=== PATIENT | male | born 1950 | race Caucasian/White ===

== ENCOUNTER → 2016-11-04 | Outpatient (CLI) | payer MEDICARE, OTHER ==
[~2016-11-04] VITALS: Ht 167.6 cm; Wt 133.8 kg
[~2016-11-04] MED LIST: ALBU17AE23 IH; ALUPENT IH; AMLO10TA2 PO; AMLO10TA82 PO; ARIP10TA2 PO; ASPI-586 PO; BENA20TA2 PO; BNZ20T PO; CATHETER FLUSH 10 ML SYR IV PRN; ESCI20TA2 PO; ESCI20TA45 PO; FINA5TAB6 PO; HYDR-3583 PO; LOVA20TA2 PO; METO200T2 PO; METO200T32 PO; PRAV10TA PO; REGADENOSON 0.4 MG/5 ML SYR (LEXISCAN) IV ONE
--- OUTSIDE RECORDS SUMMARY | 2016-11-04 07:24 | XMS REPORT | Continuity of Care Document ---
Author Author [facility] Address Unknown Phone Unavailable Allergies Medications Problems Date Dx Coded Attending Type Code Diagnosis Diagnosed By 12/27/2008 TARIQ LESLIE DO 296.90 MO MOOD DIS NOS 12/27/2008 TARIQ LESLIE DO 296.90 MO MOOD DIS NOS 12/27/2008 TRISH BETHEA MD 296.90 MO MOOD DIS NOS 12/27/2008 RENATA PARSONS APRN 296.90 MO MOOD DIS NOS 01/10/2009 TARIQ LESLIE DO 296.30 MO DEPRESSIVE RECURRENT UNSPECIFIED 01/10/2009 TARIQ LESLIE DO 401.9 UNSPECIFIED ESSENTIAL HYPERTENSION 01/10/2009 TARIQ LESLIE DO 296.30 MO DEPRESSIVE RECURRENT UNSPECIFIED 01/10/2009 TARIQ LESLIE DO 401.9 UNSPECIFIED ESSENTIAL HYPERTENSION 01/10/2009 TRISH BETHEA MD 296.30 MO DEPRESSIVE RECURRENT UNSPECIFIED 01/10/2009 TRISH BETHEA MD 401.9 UNSPECIFIED ESSENTIAL HYPERTENSION 01/10/2009 RENATA PRASONS APRN 296.30 MO DEPRESSIVE RECURRENT UNSPECIFIED 01/10/2009 RENATA PARSONS APRN 401.9 UNSPECIFIED ESSENTIAL HYPERTENSION 01/12/2009 TARIQ LESLIE DO 296.33 MO 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 01/12/2009 TARIQ LESLIE DO 296.33 MO 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 01/12/2009 TRISH BETHEA MD 296.33 MO 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 01/12/2009 RENATA PARSONS APRN 296.33 MO 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 01/15/2009 TARIQ LESLIE DO 307.47 SI DYSSOMNIA NOS 01/15/2009 TARIQ LESLIE DO 307.47 SI DYSSOMNIA NOS 01/15/2009 TRISH BETHEA MD 307.47 SI DYSSOMNIA NOS 01/15/2009 RENATA PARSONS APRN 307.47 SI DYSSOMNIA NOS 02/12/2009 TARIQ LESLIE DO 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 02/12/2009 TARIQ LESLIE DO 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 02/12/2009 TRISH BETHEA MD 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 02/12/2009 RENATA PARSONS APRN 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 04/11/2009 TARIQ LESLIE DO 296.32 MO DEPRESSIVE RECURRENT MODERATE 04/11/2009 TARIQ LESLIE DO 296.32 MO DEPRESSIVE RECURRENT MODERATE 04/11/2009 TRISH BETHEA MD 296.32 MO DEPRESSIVE RECURRENT MODERATE 04/11/2009 RENATA PARSONS APRN 296.32 MO DEPRESSIVE RECURRENT MODERATE 05/10/2009 TARIQ LESLIE DO 296.35 MO DEPRESSIVE RECURRENT IN PART OR UNSPECIFIED REMISSION 05/10/2009 TARIQ LESLIE DO 300.00 AN ANXIETY UNSPEC 05/10/2009 TARIQ LESLIE DO 296.35 MO DEPRESSIVE RECURRENT IN PART OR UNSPECIFIED REMISSION 05/10/2009 TARIQ LESLIE DO 300.00 AN ANXIETY UNSPEC 05/10/2009 TRISH BETHEA MD 296.35 MO DEPRESSIVE RECURRENT IN PART OR UNSPECIFIED REMISSION 05/10/2009 TRISH BETHEA MD 300.00 AN ANXIETY UNSPEC 05/10/2009 RENATA PARSONS APRN 296.35 MO DEPRESSIVE RECURRENT IN PART OR UNSPECIFIED REMISSION 05/10/2009 RENATA PARSONS APRN 300.00 AN ANXIETY UNSPEC 11/16/2009 TARIQ LESLIE DO V58.69 MEDICATION HIGH RISK 11/16/2009 TARIQ LESLIE DO V58.69 MEDICATION HIGH RISK 11/16/2009 TRISH BETHEA MD V58.69 MEDICATION HIGH RISK 11/16/2009 RENATA PARSONS APRN V58.69 MEDICATION HIGH RISK 11/29/2013 TRISH BETHEA MD 296.36 MO DEPRESSIVE RECURRENT IN FULL REMISSION 11/29/2013 RENATA PARSONS APRN 296.36 MO DEPRESSIVE RECURRENT IN FULL REMISSION Procedures Results Encounters ACCT No. Visit Date/Time Discharge Status Pt. Type Provider Facility Loc./Unit Complaint [id number] 11/29/2013 12:42:00 11/29/2013 23: 59:59 CLS Outpatient TRISH BETHEA MD [id number] 11/29/2013 12:42:00 11/29/2013 23: 59:59 CLS Outpatient RENATA PARSONS APRN [id number] 05/23/2013 14:51:00 05/23/2013 23: 59:59 CLS Outpatient TARIQ LESLIE DO [id number] 10/26/2012 14:51:00 10/26/2012 23: 59:59 [facility] Outpatient TARIQ LESLIE DO
[2016-11-04 09:11] VITALS: BP 158/93
--- NOTE | 2016-11-06 09:38 | STRESS TEST ---
PROCEDURE PHYSICIAN: OPAL MARIA DATE OF PROCEDURE: 11/04/2016 RESTING AND POST REGADENOSON TECHNETIUM 99M TETROFOSMIN SPECT CT IMAGING: Baseline images were carried out after injection of 10.6 mCi of technetium 99m tetrofosmin. This was followed by 0.4 mg of regadenoson and 30.8 mCi of technetium 99m tetrofosmin for stress imaging. The electrocardiogram showed sinus rhythm with right bundle branch block. During the study, there were brief episodes of Wenckebach AV block, asymptomatic. He received 0.4 mg of regadenoson and 38.8 mCi of technetium 99m tetrofosmin for stress imaging. Overall, he tolerated the procedure well. Review of images at rest and following stress, indicate a small apical perfusion defect consistent with a small amount of apical ischemia. Gated images show normal global left ventricular systolic function with normal regional wall motion. Left ventricular ejection fraction is calculated to be 60%. Left ventricular end-diastolic volume is 129 mL. CONCLUSION: 1. This study indicates a small amount of apical ischemia. 2. Normal regional wall motion. 3. Normal global left ventricular systolic function with a calculated ejection fraction of 60%. 4. Mild cardiomegaly. 5. Brief episodes of asymptomatic second degree, Mobitz I AV block during the study. Job ID: [id number] Dictated Date: 11/05/2016 17:15:52 Batch Operator Date: 11/06/2016 09:32:52 / [email or web address]
== END ==
LOC: CARD 07:21
PROVIDERS: ATTEND Nurse Practitioner Family
DX: R94.31 Abnormal electrocardiogram [ECG] [EKG] (principal); I10 Essential (primary) hypertension; E66.9 Obesity, unspecified
CPT/HCPCS: 78452; 93017

== ENCOUNTER 2016-11-05 05:56 | Outpatient (CLI) | payer MEDICARE, OTHER ==
[~2016-11-05] VITALS: Ht 167.6 cm; Wt 133.8 kg
[~2016-11-05 05:56] MED LIST changes: -AMLO10TA2 PO; -ASPI-586 PO; -BENA20TA2 PO; -CATHETER FLUSH 10 ML SYR IV PRN; -ESCI20TA45 PO; -LOVA20TA2 PO; -METO200T32 PO; -PRAV10TA PO; -REGADENOSON 0.4 MG/5 ML SYR (LEXISCAN) IV ONE
--- OUTSIDE RECORDS SUMMARY | 2016-11-05 05:59 | XMS REPORT | Continuity of Care Document ---
Author Author [facility] Address Unknown Phone Unavailable Allergies Medications [...] MD 401.9 UNSPECIFIED ESSENTIAL HYPERTENSION 01/10/2009 RENATA PARSONS APRN 296.30 MO DEPRESSIVE RECURRENT UNSPECIFIED 01/10/2009 [...] Status Pt. Type Provider Facility Loc./Unit Complaint [id number] 11/29/2013 12:42:00 11/29/2013 23: 59:59 CLS Outpatient TRISH BETHEA MD [id number] 11/29/2013 12:42:00 11/29/2013 23: 59:59 CLS Outpatient RENATA PARSONS APRN [id number] 05/23/2013 14:51:00 05/23/2013 23: 59:59 CLS Outpatient TARIQ LESLIE DO [id number] 10/26/2012 14:51:00 10/26/2012 23: 59:59 [facility] Outpatient TARIQ LESLIE DO
[2016-11-05] MEDS ORDERED: LOVA20TA2 PO (13:25)
== END 2016-11-05 13:29 ==
LOC: PREOP 05:56
PROVIDERS: ATTEND Internal Medicine
DX: Z01.818 Encounter for other preprocedural examination (principal); Z12.11 Encounter for screening for malignant neoplasm of colon

== ENCOUNTER 2016-11-07 06:51 | Day surgery (SDC) | payer OTHER ==
[~2016-11-07] VITALS: Ht 167.6 cm; Wt 133.8 kg
[~2016-11-07 06:51] MED LIST changes: +LOVA20TA2 PO
--- OUTSIDE RECORDS SUMMARY | 2016-11-07 06:54 | XMS REPORT | Continuity of Care Document ---
Author Author [facility] [place] Address Unknown Phone Unavailable Allergies Medications Problems [...] Status Pt. Type Provider Facility Loc./Unit Complaint [id number] 11/29/2013 12:42:00 11/29/2013 23: 59:59 CLS Outpatient TRISH BETHEA MD [id number] 11/29/2013 12:42:00 11/29/2013 23: 59:59 CLS Outpatient RENATA PARSONS APRN [id number] 05/23/2013 14:51:00 05/23/2013 23: 59:59 CLS Outpatient TARIQ LESLIE DO [id number] 10/26/2012 14:51:00 10/26/2012 23: 59:59 [facility] Outpatient TARIQ LESLIE DO
--- OUTSIDE RECORDS SUMMARY | 2016-11-07 06:55 | XMS REPORT | Continuity of Care Document ---
Author Author [facility] Address Unknown Phone Unavailable Allergies Medications [...] Status Pt. Type Provider Facility Loc./Unit Complaint [id number] 11/29/2013 12:42:00 11/29/2013 23: 59:59 CLS Outpatient TRISH BETHEA MD [id number] 11/29/2013 12:42:00 11/29/2013 23: 59:59 CLS Outpatient RENATA PARSONS APRN [id number] 05/23/2013 14:51:00 05/23/2013 23: 59:59 CLS Outpatient TARIQ LESLIE DO [id number] 10/26/2012 14:51:00 10/26/2012 23: 59:59 [facility] Outpatient TARIQ LESLIE DO
[2016-11-07] MEDS ORDERED: 1/2 NS IV SOLUTION 1,000 ML IV STA (07:01)
[2016-11-07] MEDS ORDERED: 1/2 NS IV SOLUTION 1,000 ML IV ONE (07:06)
--- NOTE | 2016-11-07 07:08 | HISTORY AND PHYSICAL ---
DATE OF ADMISSION: 11/07/2016 DICTATING PHYSICIAN: Dr. Mead COLONOSCOPY HISTORY AND PHYSICIAN: Mr. Antonio is a 66-year-old white male referred by Dr. Jones for his first screening colonoscopy. Mr. Antonio reports no known family history for colon cancer. He denies any personal history of bright red blood per rectum or melena. He denies any bowel habit change. PAST MEDICAL HISTORY: Significant for: 1. Hypertension. 2. Hyperlipidemia. 3. No known history of heart with known history of coronary artery disease. 4. 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 PAST SURGICAL HISTORY: Significant for: 1. Ventral hernia repair in [address] Johnson. 2. He does have a past history of kidney stones, last recurrence in 2009. SOCIAL HISTORY: He is a retired schoolteacher with no past smoking history and no significant past drinking history. MEDICATIONS: Include: 1. Amlodipine 10 mg daily. 2. Aripiprazole 5 mg daily. 3. Benazepril 20 mg daily. 4. Citalopram 20 mg daily. 5. Finasteride 5 mg daily. 6. Hydrocortisone topical cream 2.5% p.r.n. itching. 7. Ketoconazole 2% shampoo p.r.n. 8. Lovastatin 40 mg daily. 9. Metoprolol succinate ER 200 mg daily. FAMILY HISTORY: Father at age of 56 secondary to hemorrhagic CVA. Mother at the age of 44, secondary to ovarian cancer. PHYSICAL EXAMINATION: Reveals an overweight white male, appears to be in no acute distress. VITAL SIGNS: Blood pressure was 142/84. Weight was 301.6 pounds. HEENT EXAMINATION: Unremarkable. He is a Mallampati class IV oropharyngeal configuration. CHEST: Clear. CV: Revealed a regular rate and rhythm without murmur, S3 or S4. ABDOMEN: Soft, supple without masses, organomegaly or shortness. EXTREMITIES: Reveal no cyanosis, clubbing, or edema. ASSESSMENT: The patient was set-up for screening colonoscopy on 11/07. Prep instructions with split dose Colyte were given and questions were answered. I thank you for the referral of this pleasant gentleman. Sincerely, Job ID: [id number] Dictated Date: 10/30/2016 20:51:00 Naval Gunfire Spotter Date: 10/31/2016 08:34:53/katelyn
--- NOTE | 2016-11-07 07:09 | Pre-Op Note & Conscious Sedat ---
Pre-Operative Progress Note H&P Reviewed The H&P was reviewed, patient examined and no changes noted. Date H&P Reviewed: Nov 07, 2016 Time H&P Reviewed: 07:08 Conscious Sedation Pre-Proced ASA Class: 2 Airway Mallampati Classification: ([place] appropriate class) I. II. III, IV Lungs Heart ASA score ASA 1: a normal healthy patient ASA 2: a patient with a mild systemic disease (mid diabetes, controlled hypertension, obesity ASA 3: a patient with a severe systemic disease that limits activity (angina , COPD, prior Myocardial infarction) ASA 4: a patient with an incapacitating disease that is a constant threat to life (CHF, renal failure) ASA 5: a moribund patient not expected to survive 24 hrs. (ruptured aneurysm) ASA 6: a declared brain patient whose organs are being harvested. For emergent operations, add the letter E after the classification Grade 4 Sedation Plan: Analgesia, Amnesia, Plan communicated to team members, Discussed options with patient/fam, Discussed risks with patient/fam Note The patient is an appropriate candidate to undergo the planned procedure, sedation, and anesthesia. The patient immediately re-assessed prior to indication. CHI PUTNAM MD Nov 07, 2016 07:09
[2016-11-07] MEDS ORDERED: FLUMAZENIL (ROMAZICON) 0.1 MG/ML 5 ML VIAL INJ PRN (07:15)
[2016-11-07] MEDS ORDERED: MIDAZOLAM 2 MG/2 ML (VERSED) VIAL IVP PRN (07:15)
[2016-11-07] MEDS ORDERED: NALOXONE 0.4 MG/ML 1 ML (NARCAN) VIAL IVP PRN (07:15)
[2016-11-07] MEDS ORDERED: LIDOCAINE JELLY 2% (XYLOCAINE) 5 ML TUBE MM PRN (07:15)
[2016-11-07 07:23] VITALS: BP 150/88
[2016-11-07] MEDS ORDERED: MIDAZOLAM 2 MG/2 ML (VERSED) VIAL ONE ×2 (07:54)
[2016-11-07] MEDS ORDERED: LIDOCAINE JELLY 2% (XYLOCAINE) 5 ML TUBE ONE (07:55)
[2016-11-07] MEDS ORDERED: fentaNYL INJECTION 100 MCG/2 ML AMP ONE (07:55)
[2016-11-07] MEDS: fentaNYL INJECTION 100 MCG/2 ML AMP IVP PRN ×2 (08:00→08:14)
[2016-11-07 08:45] VITALS: BP 132/67
[2016-11-07 09:10] VITALS: BP 141/63
[2016-11-07 09:15] VITALS: BP 141/63
--- NOTE | 2016-11-07 19:26 | PROCEDURE REPORT ---
PROCEDURE PHYSICIAN: CHI PUTNAM DATE OF PROCEDURE: 11/07/2016 SCREENING COLONOSCOPY: INDICATION FOR THE PROCEDURE: Screening colonoscopy. PROCEDURE: The patient was placed in the left lateral decubitus position. Prior to undergoing colonoscopy, digital rectal evaluation was performed. Anal sphincter tone was normal. The perianal reflex was intact. The prostate is severely enlarged but anodular and nontender to digital inspection. No other abnormalities were noted to digital inspection of the anal canal or distal rectal vault. The colonoscope was then inserted into the rectum and under direct visualization advanced to the cecum. The cecum was identified by identification of the ileocecal valve and cecal strap, as well as appendiceal orifice. Photographic documentation was obtained. Careful inspection was made as the colonoscope was withdrawn. The patient tolerated the procedure well. FINDINGS: There was no evidence for internal or external hemorrhoids and the rectum was unremarkable. There was a little bit of deformity secondary to severe prosthetic enlargement. The quality of the prep was good however and there was no evidence for obstruction. The rectum was otherwise unremarkable. Present in the distal sigmoid colon was a diminutive 4 mm polyp that was photographed, biopsied and ablated, with no subsequent blood loss. The remainder of the sigmoid colon was unremarkable. There is no evidence for colonic dilatation. The descending colon, splenic flexure, transverse colon, hepatic flexure, ascending colon and cecum were unremarkable. ASSESSMENT: There is severe enlargement of the prostate, which was otherwise uniform to digital inspection without evidence for nodularity. One diminutive polyp with benign features measuring roughly 3 x 4 mm in size was removed via hot forceps with no blood loss from the distal sigmoid colon. This was an otherwise normal colonoscopy to the cecum. As long as there are no surprises on histopathology report, we will advocate consideration for repeat screening colonoscopy in 10 years as long as there continues to be no family history for colon cancer. I thank you for the referral of this pleasant gentleman. Sincerely, Job ID: [id number] Dictated Date: 11/07/2016 13:24:44 Computer Systems Technician Date: 11/07/2016 19:21:15 / [email or web address]
== END 2016-11-07 09:15 | disposition home or self-care (01) ==
LOC: ENDO 06:51
PROVIDERS: ATTEND Internal Medicine
DX: Z12.11 Encounter for screening for malignant neoplasm of colon (principal); K63.5 Polyp of colon; N40.0 Benign prostatic hyperplasia without lower urinary tract symptoms
CPT/HCPCS: 88305

== ENCOUNTER 2016-11-25 07:04 | Day surgery (SDC) | payer OTHER ==
[~2016-11-25] VITALS: Ht 167.6 cm; Wt 134.5 kg
[2016-11-25] VITALS (8 sets, daily range): BP systolic 128–172; BP diastolic 70–94
[2016-11-25] MEDS ORDERED: NS IV 1000 ML 1,000 ML ONE (07:14)
[2016-11-25] MEDS ORDERED: LIDOCAINE 1% INJ 20 ML (XYLOCAINE) VIAL ONE (07:14)
[2016-11-25] MEDS ORDERED: HEParin (CATH LAB) 2,000 ML IV ONE (07:14)
[2016-11-25] MEDS ORDERED: NS IV 1000 ML 1,000 ML IV SCH (07:30)
[2016-11-25] MEDS ORDERED: ASPI-586 PO (07:39)
[2016-11-25] MEDS ORDERED: METO200T32 PO (07:39)
[2016-11-25] MEDS ORDERED: BENA20TA2 PO (07:39)
[2016-11-25] MEDS ORDERED: ESCI20TA45 PO (07:39)
[2016-11-25] MEDS ORDERED: AMLO10TA2 PO (07:39)
[2016-11-25 07:42] LABS: MEAN PLATELET VOLUME 11.1 FL (7.4-10.4); RED BLOOD COUNT 5.52 10^6/uL (4.35-5.85); RED CELL DISTRIBUTION WIDTH 13.9 % (10.0-14.5); WHITE BLOOD COUNT 12.4 10^3/uL (4.3-11.0)
[2016-11-25 07:52] LABS: INR 1.1 (0.8-1.4)
[2016-11-25 07:59] LABS: ALANINE AMINOTRANSFERASE 17 U/L (0-55); ALBUMIN 4.2 G/DL (3.2-4.5); ANION GAP 12 MMOL/L (5-14); ASPARTATE AMINO TRANSFERASE 18 U/L (5-34); BILIRUBIN,TOTAL 0.7 MG/DL (0.1-1.0); BLOOD UREA NITROGEN 15 MG/DL (7-18); BUN/CREATININE RATIO 15; CALCIUM 9.4 MG/DL (8.5-10.1); CARBON DIOXIDE 25 MMOL/L (21-32); CHLORIDE 104 MMOL/L (98-107); CHOLESTEROL 171 MG/DL (< 200); CREATININE SERUM 0.99 MG/DL (0.60-1.30); DIRECT LDL 115 MG/DL (1-129); GFR ESTIMATED > 60; GLUCOSE 148 MG/DL (70-105); POTASSIUM 3.7 MMOL/L (3.6-5.0); SODIUM 141 MMOL/L (135-145); TOTAL PROTEIN 7.8 G/DL (6.4-8.2); TRIGLYCERIDES 143 MG/DL (<150); VLDL CHOLESTEROL 29 MG/DL (5-40)
[2016-11-25] MEDS ORDERED: FLU TRIvalent (5 YOA+) 2016-17 (AFLURIA) 0.5 ML IM ONE (08:00)
[2016-11-25] MEDS ORDERED: fentaNYL INJECTION 100 MCG/2 ML AMP ONE (08:11)
[2016-11-25] MEDS ORDERED: diphenhydrAMINE 50 MG/ML INJ (BENADRYL) ONE (08:11)
[2016-11-25] MEDS ORDERED: MIDAZOLAM 5 MG/5 ML (VERSED) VIAL ONE (08:11)
[2016-11-25] MEDS: NS IV 1000 ML 1,000 ML IV SCH (10:17)
--- NOTE | 2016-11-25 10:17 | Cardiac Procedure Note-CS/ASA ---
Pre-Procedure Note Pre-Op Procedure Note H&P Reviewed The H&P was reviewed, patient examined and no changes noted. Date H&P Reviewed: Nov 25, 2016 Time H&P Reviewed: 09:00 Conscious Sedation Pre-Proced Time Reviewed: 09:00 ASA Class: 2 Airway Mallampati Classification: ([place] appropriate class) I. II. III, IV Lungs Heart ASA score ASA 1: a normal healthy patient ASA 2: a patient with a mild systemic disease (mid diabetes, controlled hypertension, obesity ASA 3: a patient with a severe systemic disease that limits activity (angina , COPD, prior Myocardial infarction) ASA 4: a patient with an incapacitating disease that is a constant threat to life (CHF, renal failure) ASA 5: a moribund patient not expected to survive 24 hrs. (ruptured aneurysm) ASA 6: a declared brain patient whose organs are being harvested. For emergent operations, add the letter E after the classification Grade 3 Sedation Plan: Analgesia, Amnesia, Plan communicated to team members, Discussed options with patient/fam, Discussed risks with patient/fam Note The patient is an appropriate candidate to undergo the planned procedure, sedation, and anesthesia. The patient immediately re-assessed prior to indication. OPAL MARIA MD FACP FAC CCDS Nov 25, 2016 10:17
[2016-11-25] MEDS ORDERED: ACETAMINOPHEN 325 MG TABLET/CAPLET (TYLENOL) PO PRN (10:30)
[2016-11-25] MEDS ORDERED: PATIENT MAY USE OWN MEDS, ALL PO SCH (10:30)
--- NOTE | 2016-11-25 12:59 | CARDIAC CATHETERIZATION ---
PROCEDURE PHYSICIAN: OPAL MARIA DATE OF PROCEDURE: 11/25/2016 PRIMARY PHYSICIAN: Dr. Jones. Bobo Antonio is a 66-year-old gentleman with right bundle branch block and second-degree Mobitz I AV block who recently had a stress test that showed apical ischemia. Cardiac catheterization was carried out today after having obtained an informed consent. PROCEDURE: She was brought to the cardiac catheterization laboratory in a fasting state. The right groin was prepared and draped in usual sterile fashion. 1% lidocaine was used for local anesthesia. Modified Seldinger technique was used to advance a 5-Omani sheath in right femoral artery. 5-Omani JL4 catheter was used for left coronary angiography. A 5-Omani JR 4 for right coronary angiography. A 5-Omani pigtail catheter for left heart catheterization, left ventricular angiography. Shortly following left heart catheterization, he developed complete heart block. The pigtail catheter was removed and we proceeded with a temporary pacemaker insertion. TEMPORARY PACEMAKER INSERTION: We used a 7-Omani sheath in to access the right femoral vein and were able to advance a temporary pacemaker wire the tip of which was placed at the right ventricular apex and the lead was attached to an external temporary pacemaker. Good capture and sensing thresholds were obtained. He tolerated the procedure well. LEFT VENTRICULAR ANGIOGRAPHY: Left ventricular angiography was carried out in the right anterior oblique projection. Global left ventricular systolic function was well preserved. Left ventricular ejection fraction was 55 to 60%. No distinct regional wall motion abnormalities are seen on this study. There did not appear to be significant mitral regurgitation on this study. CORONARY ANGIOGRAPHY: The left main coronary angiography and left anterior descending artery, right coronary all exhibit no more than minor coronary plaques. The right coronary artery is dominant. CONCLUSION: 1. Angiographically minor coronary artery disease. 2. Well preserved global left ventricular systolic function and ejection fraction 55%. 3. No significant mitral regurgitation. 4. Transient complete heart block following left ventricular angiography in this gentleman with chronic permanent right bundle-branch block. This necessitated temporary pacemaker insertion. DISCUSSION AND RECOMMENDATIONS: Risk factor modification has been reviewed. Conservative approach and risk factor modification is recommended for mild coronary artery disease. For rhythm issues, we have consulted the electrophysiology service (Dr. Price). ADDENDUM: Following completion of the procedure, he was exhibiting his normal heart rhythm without any dependence on pacemaker. Therefore, the temporary pacemaker wire was removed prior to transfer to the floor. Job ID: [id number] Dictated Date: 11/25/2016 10:15:24 Sharepoint Administrator Date: 11/25/2016 12:44:42 / [place]ina
--- NOTE | 2016-11-25 13:44 | Electrophysiology Consultation ---
HPI-Cardiology Cardiology Consultation: Date of Consultation 11/25/16 Date of Admission [facility] Phys[facility] Jas Jones MD Consulting Physician Edliberto SALAS MD HPI: Chief Complaint: Transient complete heart block This is a 66 year old male with history of hypertension. He was found to have right bundle branch block on his EKG. Pharmacological nuclear stress tests was performed which showed Mobitz type I AV block and possibility of ischemic heart disease. Coronary angiography was performed this morning by Dr. Diane Cherry. During left heart catheterization the patient developed complete heart block and required temporary pacing. Subsequently the patient converted to normal sinus rhythm with 1:1 AV conduction. The patient denies any previous symptoms including symptoms of dizziness, lightheadedness, near syncope, syncope. Review of Systems-Cardiology Review of Systems Constitutional: No As described under HPI, No no symptoms reported, No chills, No fever, No lightheadedness, No malaise, No tiredness, No weight loss, No weight gain, No other Eyes: No As described under HPI, No no symptoms reported, No blindness, No blurred vision, No contact lenses, No drainage, No decreased acuity, No foreign body sensation, No glasses, No inflammation, No pain, No photophobia, No previous injury, No shadows, No tunnel vision, No other, No vision change Ears/Nose/Throat: No As described under HPI, No no symptoms reported, No chronic hearing loss, No epistaxis, No ear discharge, No ear pain, No loose teeth, No mouth pain, No mouth swelling, No nasal drainage, No nose pain, No recent hearing loss, No throat pain, No throat swelling, No ulcerations, No other Respiratory: No no symptoms reported, No As described under HPI, No cough, No orthopnea, No shortness of breath, No SOB with excertion, No SOB at rest, No stridor, No wheezing, No other Cardiovascular: No no symptoms reported, No As described under HPI, No chest pain, No edema, No irregular heart rate, No lightheadedness, No palpitations, No syncope, No other Gastrointestinal: No no symptoms reported, No As described under HPI, No abdomen distended, No abdominal pain, No blood streaked bowels, No constipation , No diarrhea, No difficulty swallowing, No nausea, No poor appetite, No poor fluid intake, No rectal bleeding, No vomiting, No other, No nausea/vomiting/ diarrhea, No stool coloration changes Genitourinary: No no symptoms reported, No As described under HPI, No burning, No dysuria, No discharge, No frequency, No flank pain, No hematuria, No incontinence, No pain, No urgency, No other, No urine frequency changes, No urine coloration changes Musculoskeletal: No no symptoms reported, No As describe under HPI, No back pain, No gout, No joint pain, No joint swelling, No muscle pain, No muscle stiffness, No neck pain, No other Skin: No no symptoms reported, No As described under HPI, No change in color, No change in hair/nails, No dryness, No lesions, No lumps, No rash, No other, No skin related problems, No ulcerations, No rash on exposed areas, No ulcerations on exposed areas Psychiatric/Neurological: No As described under HPI, No anxiety, No depression , No emotional problems, No focal weakness, No headache, No no symptoms reported , No numbness, No other, No pre-existing deficit, No seizure, No syncope, No tingling, No tremors, No weakness MKD-[id number]-Aqoeyd Hx Patient Social History Smoking Status: Never a Smoker Recent Foreign Travel: No Recent Infectious Disease Expo: No Past Medical History PMH As described under Assessment. Allergies and Home Medications Allergies Coded Allergies: No Known Drug Allergies (Unverified , 11/05/16) Home Medications Amlodipine Besylate 10 Mg Tablet, 10 MG PO DAILY, (Reported) Aripiprazole 10 Mg Tablet, 5 MG PO DAILY, (Reported) Aspirin 81 Mg Tablet.dr, 81 MG PO DAILY, (Reported) Benazepril HCl 20 Mg Tablet, 20 MG PO DAILY, (Reported) Escitalopram Oxalate 20 Mg Tablet, 20 MG PO DAILY, (Reported) Finasteride 5 Mg Tablet, 5 MG PO DAILY, (Reported) Lovastatin 20 Mg Tablet, 20 MG PO DAILY, (Reported) Metoprolol Succinate 200 Mg Tab.er.24h, 200 MG PO DAILY, (Reported) Physical Exam-Cardiology Physical Exam Vital Signs/I&O Vital Sign - Last 12Hours 11/25/16 11/25/16 07:26 09:51 Temp 100.4 Pulse 45 85 Resp 16 B/P (MAP) 172/93 Pulse Ox 94 O2 Delivery Room Air Capillary Refill : Less Than 3 Seconds Constitutional: No appears stated age, No AAO x 3, No apparent distress, No PERRL, No well-developed, No well-nourished, No other HEENT: No PERRL, No normal ENT inspection, No TMs normal, No pharynx normal, No scleral icterus (R), No scleral icterus (L), No pale conjunctivae (R), No pale conjunctivae (L), No photophobia, No TM abnormal (R), No TM abnormal (L), No pharyngeal erythema, No tonsillar exudate, No other, No discharge, No EOMI, No hearing is well preserved, No hard of hearing, No oral hygience is good, No ulceration, No xanthelasmas are seen Neck: No non-tender, No full range of motion, No supple, No normal inspection, No carotid bruit, No limited range of motion, No lymphadenopathy (R), No lymphadenopathy (L), No tender lateral, No tender midline, No thyromegaly, No other, No carotid pulses are 2 + bilaterally, No with good upstrokes Respiratory: No accessory muscle use, No respiratory distress, No chest tender , No chest expansion is symmetric, No chest is bilaterally symmetric, No lungs clear to percussion, No lungs clear to auscultation, No crackles, No rhonchi, No rales, No stridor, No wheezing, No pleural rub, No other Cardiovascular: No regular rate-rhythm, No irregularly irregular, No extra beats, No parasternal heave is noted, No JVD, No edema, No bradycardia, No tachycardia, No point of maximal impulse, No cardiac thrills are palpable, No S1 and S2, No gallop/S3, No gallop/S4, No diastolic murmur, No systolic murmur, No friction rub, No click, No other Gastrointestinal: No tender, No soft, No round, No distended, No pulsatile mass , No organomegaly, No guarding, No rebound, No tenderness, No hernia, No mass, No audible bowel sounds, No abnormal bowel sounds, No abdominal bruits, No spleenomegaly, No other Rectal: deferred Extremities: No normal range of motion, No non-tender, No normal inspection, No pedal edema, No calf tenderness, No normal capillary refill, No pelvis stable , No calf tenderness, No inflammation, No pedal edema, No slow capillary refill , No swelling, No other, No abrasion, No clubbing, No cyanosis, No ecchymosis, No laceration, No no lower extremity edema bilateral, No significant edema, No tenderness, No wound Neurologic/Psychiatric: No washer and capper machine operator II-XII nml as tested, No no motor/sensory deficits, No alert, No normal mood/affect, No oriented x 3, No abnormal cerebellar tests, No abnormal washer and capper machine operator II-XII, No abnormal gait, No aphasia, No EOM palsy, No facial droop, No motor weakness, No sensory deficit, No depressed affect, No disoriented x 3, No other, No grossly intact, No power is 5/5 both on sides Skin: No normal color, No warm/dry, No cyanosis, No cool, No diaphoresis, No damp, No ecchymosis, No jaundice, No mottled, No pallor, No rash, No tattoos/ piercings, No ulcerations, No rash on exposed areas, No ulcerations on exposed areas, No other Data Review Labs Laboratory Tests 11/25/16 07:34: White Blood Count 12.4H, Red Blood Count 5.52, Hemoglobin 16.9, Hematocrit 51, Mean Corpuscular Volume 92, Mean Corpuscular Hemoglobin 31, Mean Corpuscular Hemoglobin Concent 34, Red Cell Distribution Width 13.9, Platelet Count 258, Mean Platelet Volume 11.1H, Prothrombin Time 14.0, INR Comment 1.1, Activated Partial Thromboplast Time 31, Sodium Level 141, Potassium Level 3.7, Chloride Level 104, Carbon Dioxide Level 25, Anion Gap 12, Blood Urea Nitrogen 15, Creatinine 0.99, Estimat Glomerular Filtration Rate > 60, BUN/Creatinine Ratio 15, Glucose Level 148H, Calcium Level 9.4, Total Bilirubin 0.7, Aspartate Amino Transf (AST/SGOT) 18, Alanine Aminotransferase (ALT/SGPT) 17, Alkaline Phosphatase 78, Total Protein 7.8, Albumin 4.2, Triglycerides Level 143, Cholesterol Level 171, LDL Cholesterol Direct 115, VLDL Cholesterol 29, HDL Cholesterol 37L Microbiology 11/25/16 MRSA Screen - Final, Resulted MRSA not isolated ECG Impression ECG Initial ECG Rhythm: Normal Sinus Initial ECG Intervals: QRS (RBBB 160ms) A/P-Cardiology Assessment/Admission Diagnosis transient complete heart block. Mobitz type I AV block. Right bundle-branch block on EKG Plan this is a 66-year-old gentleman with history of hypertension on metoprolol and amlodipine. Right bundle branch block was noted on EKG. Pharmacological nuclear stress test showed transient Mobitz type I AV block and possibility of ischemic heart disease. Coronary angiography was performed. During left heart catheterization there was transient complete heart block therefore temporary pacemaker was placed. This could be secondary to catheter manipulation in the LVOT. The patient previously was asymptomatic and also is asymptomatic during my H&P. I discussed at length with the patient and spouse. There is a possibility that the patient may have high degree AV block in the future. I have recommended a 30 day event monitor. I've also educated the patient at length and told him to seek immediate medical attention if he develops dizziness , lightheadedness, near-syncope or syncope. He will also discontinue metoprolol. The patient does have evidence of infra-Hisian conduction disease as evidenced by his right bundle-branch block with a QRS duration of 160 ms. Thank you for your consultation. Please call me if you have any questions. Homar Salas MD Cardiac Electrophysiology Edilberto SALAS MD Nov 25, 2016 1:44 pm
[2016-11-25] MEDS ORDERED: ATROPINE INJECTION 1 MG/10 ML SYR (ABBOTT) INJ ONE (13:51)
[2016-11-25] MEDS ORDERED: SIMvastatin 10 MG (ZOCOR) TAB PO SCH (21:00)
[2016-11-26 00:18] VITALS: BP 142/75
[2016-11-26 03:50] LABS: MEAN PLATELET VOLUME 11.1 FL (7.4-10.4); RED BLOOD COUNT 5.27 10^6/uL (4.35-5.85); WHITE BLOOD COUNT 11.6 10^3/uL (4.3-11.0)
[2016-11-26 04:02] LABS: ANION GAP 9 MMOL/L (5-14); BLOOD UREA NITROGEN 18 MG/DL (7-18); BUN/CREATININE RATIO 20; CALCIUM 8.9 MG/DL (8.5-10.1); CARBON DIOXIDE 27 MMOL/L (21-32); CHLORIDE 106 MMOL/L (98-107); CREATININE SERUM 0.91 MG/DL (0.60-1.30); GFR ESTIMATED > 60; GLUCOSE 132 MG/DL (70-105); POTASSIUM 3.7 MMOL/L (3.6-5.0); SODIUM 142 MMOL/L (135-145)
[2016-11-26 04:29] VITALS: BP 152/81
[2016-11-26] MEDS: NS IV 1000 ML 1,000 ML IV SCH (06:17)
[2016-11-26 07:58] VITALS: BP 144/85
[2016-11-26] MEDS ORDERED: amLODIPine 10 MG (NORVASC) TAB PO SCH (09:00)
[2016-11-26] MEDS ORDERED: ARIPIPRAZOLE 10 MG (ABILIFY) TAB PO SCH (09:00)
[2016-11-26] MEDS ORDERED: ASPIRIN E.C. 81 MG (ECOTRIN) TAB PO SCH (09:00)
[2016-11-26] MEDS ORDERED: BENAZEPRIL 20 MG (LOTENSIN) TAB PO SCH (09:00)
[2016-11-26] MEDS ORDERED: FINASTERIDE (PROSCAR) 5 MG TAB PO SCH (09:00)
--- NOTE | 2016-11-26 09:26 | Progress Note-Cardiology ---
Cardiology SOAP Progress Note Subjective: No cp or palp or syncope. No groin discomfort. Feels well. Wishes to go home Objective: I&O/Vital Signs Vital Sign - Last 12Hours 11/26/16 11/26/16 11/26/16 11/26/16 00:18 01:21 04:29 07:00 Temp 99.0 99.1 Pulse 68 70 67 67 Resp 18 20 B/P (MAP) 142/75 152/81 Pulse Ox 92 92 O2 Delivery Room Air Room Air 11/26/16 07:58 Temp 98.6 Pulse 64 Resp 16 B/P (MAP) 144/85 Pulse Ox 93 O2 Delivery Room Air Intake and Output 11/26/16 00:00 Intake Total 1600 ml Output Total 150 ml Balance 1450 ml Weight (Pounds): 296 Weight (Ounces): 8.0 Weight (Calculated Kilograms): 134.972298 Groin site without hematoma: Yes Bruising: mild bruising Constitutional: AAO x 3, well-developed, well-nourished Respiratory: No accessory muscle use, lungs clear to percussion, lungs clear to auscultation Cardiovascular: regular rate-rhythm, S1 and S2, systolic murmur (faint TRIPP at cardiac base) Gastrointestional: No tender, soft, No guarding, No rebound, audible bowel sounds Extremities: No clubbing, No cyanosis, No significant edema Neurologic/Psychiatric: oriented x 3, grossly intact, power is 5/5 both on sides Skin: No rash on exposed areas, No ulcerations on exposed areas Results/Procedures: Labs Laboratory Tests 11/26/16 03:30: White Blood Count 11.6H, Red Blood Count 5.27, Hemoglobin 16.0, Hematocrit 49, Mean Corpuscular Volume 92, Mean Corpuscular Hemoglobin 30, Mean Corpuscular Hemoglobin Concent 33, Red Cell Distribution Width 14.0, Platelet Count 221, Mean Platelet Volume 11.1H, Sodium Level 142, Potassium Level 3.7, Chloride Level 106, Carbon Dioxide Level 27, Anion Gap 9, Blood Urea Nitrogen 18, Creatinine 0.91, Estimat Glomerular Filtration Rate > 60, BUN/Creatinine Ratio 20, Glucose Level 132H, Calcium Level 8.9 Microbiology 11/25/16 MRSA Screen - Final, Resulted MRSA not isolated Laboratory Tests 11/25/16 07:34 11/26/16 03:30 A/P: Assessment: Chronic RBBB Previously documented Mobitz I 2nd degree AV block, asymptomatic No h/o syncope Minimal CAD diagnosed after an abnormal stress test of 11/14/16. Cardiac cath of 11/25/16: Angiographically minor coronary artery disease, well-preserved global left ventricular systolic function and ejection fraction 55%, no significant mitral regurgitation. Transient complete heart block following left ventricular angiography in this gentleman with chronic permanent right bundle-branch block. This necessitated temporary pacemaker insertion, which was removed a few minutes later and approx 24 hour observation since has not shown any significant AV block Obesity with BMI approx 48 Hypertension Hyperlipidemia Fam h/o ealry CAD (father) Plan: * For CAD, risk factor modification is advised. This was discussed * For transient complete heart block following LHC in this gentleman with chronic RBBB and mild intermittent Mobitz I block without any syncope or symptoms, we obtained a consultation with Dr Salas of the EP service * I have discussed his case in detail with Dr Salas. We will carry out his rec of an event monitor study * We have discontinued beta-blockers from his regimen * We have advised close clinical f/u for now OPAL MARIA MD FACP [facility]S Nov 26, 2016 09:26
[2016-11-26] MEDS ORDERED: PRAV10TA PO (09:35)
--- NOTE | 2016-11-26 09:36 | Discharge Inst-Cardiology ---
Discharge Inst-Cardiac Discharge Medications New Medications: Pravastatin Sodium (Pravastatin Sodium) 10 Mg Tablet 10 MG PO DAILY for 90 Days, #90 TAB 3 Refills Continued Medications: Amlodipine Besylate (Amlodipine Besylate) 10 Mg Tablet 10 MG PO DAILY, TAB Aripiprazole (Abilify) 10 Mg Tablet 5 MG PO DAILY Aspirin (Aspir 81) 81 Mg Tablet.dr 81 MG PO DAILY, TAB Benazepril HCl (Benazepril HCl) 20 Mg Tablet 20 MG PO DAILY, TAB Escitalopram Oxalate (Escitalopram Oxalate) 20 Mg Tablet 20 MG PO DAILY, TAB Finasteride (Finasteride) 5 Mg Tablet 5 MG PO DAILY Lovastatin (Lovastatin) 20 Mg Tablet 20 MG PO DAILY, TAB Discontinued Medications: Metoprolol Succinate (Metoprolol Succinate) 200 Mg Tab.er.24h 200 MG PO DAILY, TAB Patient Instructions Patient Instructions: Follow Dr Salas's instructions regarding Event Monitor Activity & Diet Discharge Diet: Cardiac Diet Orders-Post D/C & Referrals Pneu Vac Indicated: Yes OPAL MARIA MD FACP [facility]AC [facility]S Nov 26, 2016 09:36
--- NOTE | 2016-11-26 09:36 | Discharge Inst-Post CATH ---
Discharge Inst-CATH Post Cardiac Cath D/C Inst Follow Up/Plan F/u with Dr Cherry in 3 weeks F/u with Dr Salas in 4 weeks CARDIAC CATH DISCHARGE INSTRUCTIONS *Hold Metformin for 48 hours post heart cath. ACTIVITY * Go Home directly and rest. * Limit activity of the leg (or wrist if it was used) for 7 days including aerobics, swimming, jogging, bicycling, etc. * Restrict stair-climbing for 7 days if possible, if not, climb up with your non -cath leg, then bring together on the same step. * Avoid lifting, pushing, pulling or excessive movement of the affected extremity for 7 days. * Customary sexual activity may be resumed after 2 days-use caution not to use a position that strains or causes pain to the affected extremity. * No driving for 24 hours. * NO SMOKING. * Avoid straining for bowel movements for 7 days. * Gentle walking on level ground is allowed. * Returning to work will depend on the type of procedure and the results. Your doctor will discuss this with you. CALL YOUR DOCTOR FOR ANY OF THE FOLLOWING: *If bleeding from the puncture site occurs- Apply gentle pressure to site with clean cloth and call your doctor or EMS. * If a knot or lump forms under the skin, increases in size, or causes pain. * If bruising appears to be worsening or moving further down your leg instead of disappearing. * Temperature above 101 F. CARE OF YOUR GROIN INCISION; * Bruising or purple discoloration of the skin near the puncture site is common. * You may shower only, no bathtub bathing for 5 days. Be careful to avoid slipping as your leg may feel stiff. * If a closure device was used on your femoral artery, please see the attached guide regarding care of the device and your leg. * REMOVE the dressing from your groin the next day after your procedure in the shower. CARE OF YOUR WRIST INCISION; * Bruising or purple discoloration of the skin near the puncture site is common. * You may shower. * DO NOT submerge wrist. * Remove dressing in 24 hours. OPAL CHERRY MD FACP [facility]S Nov 26, 2016 09:35
--- NOTE | 2016-11-26 09:42 | Cardiology Discharge Summary ---
Diagnosis/Chief Complaint Date of Admission 11/25/16 Date of Discharge 11/26/16 Final/Discharge Diagnosis Chronic RBBB Previously documented Mobitz I 2nd degree AV block, asymptomatic No h/o syncope Minimal CAD diagnosed after an abnormal stress test of 11/14/16. Cardiac cath of 11/25/16: Angiographically minor coronary artery disease, well-preserved global left ventricular systolic function and ejection fraction 55%, no significant mitral regurgitation. Transient complete heart block following left ventricular angiography in this gentleman with chronic permanent right bundle-branch block. This necessitated temporary pacemaker insertion, which was removed a few minutes later and approx 24 hour observation since has not shown any significant AV block Obesity with BMI approx 48 Hypertension Hyperlipidemia Fam h/o ealry CAD (father) Chief Complaint/HPI Chief Complaint/HPI See progress note of 11/26/16 Time spent in patient exam and interview and instructions and answers to questions and arranging discharge and writing meds and completing notes: 9:10 am to 9:42 am Discharge Summary Procedures Cardiac cath and temp pacemaker (see cath report and progress note of 11/26/16) Hospital Course Pending Labs Laboratory Tests 11/26/16 03:30: White Blood Count 11.6, Red Blood Count 5.27, Hemoglobin 16.0, Hematocrit 49, Mean Corpuscular Volume 92, Mean Corpuscular Hemoglobin 30, Mean Corpuscular Hemoglobin Concent 33, Red Cell Distribution Width 14.0, Platelet Count 221, Mean Platelet Volume 11.1, Sodium Level 142, Potassium Level 3.7, Chloride Level 106, Carbon Dioxide Level 27, Anion Gap 9, Blood Urea Nitrogen 18, Creatinine 0.91, Estimat Glomerular Filtration Rate > 60, BUN/Creatinine Ratio 20, Glucose Level 132, Calcium Level 8.9 Discussion & Recommendations Home Medications Reviewed patient Home Medication Reconciliation Form Discharge Home Medications: Reviewed and agree with Discharge Medication list on patient's Discharge Instruction sheet Instructions to patient/family F/u with Dr Cherry in 3 weeks F/u with Dr Salas in 4 weeks OPAL CHERRY MD [facility] Nov 26, 2016 09:42
--- OUTSIDE RECORDS SUMMARY | 2016-12-09 20:15 | XMS REPORT | Continuity of Care Document ---
Author Author [facility] Address Unknown Phone Unavailable Allergies [...] Status Pt. Type Provider Facility Loc./Unit Complaint [id number] 11/29/2013 12:42:00 11/29/2013 23: 59:59 CLS Outpatient TRISH BETHEA MD [id number] 11/29/2013 12:42:00 11/29/2013 23: 59:59 CLS Outpatient RENATA PARSONS APRN [id number] 05/23/2013 14:51:00 05/23/2013 23: 59:59 CLS Outpatient TARIQ LESLIE DO [id number] 10/26/2012 14:51:00 10/26/2012 23: 59:59 [facility] Outpatient TARIQ LESLIE DO
== END 2016-11-26 10:20 | disposition home or self-care (01) ==
LOC: DELPENDDIS → CATH 07:04 → ICU 09:45 → CATH 11-26 10:20
PROVIDERS: ATTEND Internal Medicine Cardiovascular Disease
DX: R94.39 Abnormal result of other cardiovascular function study (principal); I44.2 Atrioventricular block, complete; I25.10 Atherosclerotic heart disease of native coronary artery without angina pectoris; I45.10 Unspecified right bundle-branch block; I44.1 Atrioventricular block, second degree; I10 Essential (primary) hypertension; E66.9 Obesity, unspecified; Z79.899 Other long term (current) drug therapy; Z68.42 Body mass index [BMI] 45.0-49.9, adult; Z82.49 Family history of ischemic heart disease and other diseases of the circulatory system
CPT/HCPCS: 33210; 36415; 80048; 80053; 80061; 85027; 85610; 85730; 87081; 93005; 93458

== ENCOUNTER 2016-12-22 09:30 | Outpatient (RCR) | payer OTHER ==
[~2016-12-22 09:30] MED LIST changes: +AMLO10TA2 PO; +ASPI-586 PO; +BENA20TA2 PO; +ESCI20TA45 PO; +METO200T32 PO; +PRAV10TA PO
== END 2017-02-25 | disposition home or self-care (01) ==
LOC: CARD 09:30
PROVIDERS: ATTEND Internal Medicine Interventional Cardiology
DX: E78.5 Hyperlipidemia, unspecified (principal)
CPT/HCPCS: 93270

== ENCOUNTER → 2016-12-31 | Outpatient (CLI) | payer OTHER | LOC: CARD 11:40 | PROVIDERS: ATTEND Internal Medicine Interventional Cardiology | DX: I47.2 Ventricular tachycardia (principal); I49.3 Ventricular premature depolarization; I44.2 Atrioventricular block, complete | CPT/HCPCS: 93225; 93226 ==

== ENCOUNTER → 2017-01-12 | Outpatient (CLI) | payer OTHER ==
[2017-01-12 13:15] LABS: ALBUMIN 3.9 G/DL (3.2-4.5); BILIRUBIN,TOTAL 0.8 MG/DL (0.1-1.0); CALCIUM 9.5 MG/DL (8.5-10.1); CREATININE SERUM 1.52 MG/DL (0.60-1.30); POTASSIUM 3.7 MMOL/L (3.6-5.0); TOTAL PROTEIN 7.5 G/DL (6.4-8.2)
== END ==
LOC: LAB 12:26
PROVIDERS: ATTEND Internal Medicine Cardiovascular Disease
DX: E78.5 Hyperlipidemia, unspecified (principal)
CPT/HCPCS: 36415; 80053; 80061

== ENCOUNTER → 2017-01-12 | Outpatient (CLI) | payer OTHER | LOC: CARD 12:23 | PROVIDERS: ATTEND Internal Medicine Interventional Cardiology | DX: I47.2 Ventricular tachycardia (principal); I49.3 Ventricular premature depolarization; I44.2 Atrioventricular block, complete; I10 Essential (primary) hypertension | CPT/HCPCS: 93306 ==